=== PATIENT | female | born 1995 | race Caucasian/White ===

== ENCOUNTER → 2021-10-03 13:39 | Outpatient (BNVA) | payer BC, SELFPAY | PROVIDERS: Visit Provider Advanced Practice Midwife ==

== ENCOUNTER → 2021-10-19 16:31 | Outpatient (BNVA) | payer BC, SELFPAY | PROVIDERS: Visit Provider Advanced Practice Midwife ==

== ENCOUNTER 2022-01-01 08:35 | Outpatient (REF) | payer BC, SELFPAY ==
[2022-01-01 15:51] LABS: CT PCR NOT DETECTED (Not Detect.); NG PCR NOT DETECTED (Not Detect.)
[2022-01-02 15:47] LABS: BV Int Neg Control Negative (Negative); BV Int Pos Control Positive (Positive)
== END 2022-01-01 08:36 | disposition home or self-care (01) ==
LOC: HO.LAB 08:35
PROVIDERS: Visit Provider Advanced Practice Midwife
DX: Z01.411 Encounter for gynecological examination (general) (routine) with abnormal findings (principal); E28.2 Polycystic ovarian syndrome; R63.8 Other symptoms and signs concerning food and fluid intake; R10.2 Pelvic and perineal pain; R35.0 Frequency of micturition; Z20.2 Contact with and (suspected) exposure to infections with a predominantly sexual mode of transmission
CPT/HCPCS: 81025; 87086; 87480; 87491; 87510; 87591; 87660

== ENCOUNTER 2022-01-23 15:18 | Outpatient (REF) | payer BC, SELFPAY ==
--- NOTE | ~2022-01-23 | US_ITS ---
EXAMINATION: US PELVIS CLINICAL INFORMATION: Pelvic pain COMPARISON: None TECHNIQUE: Ultrasound of the pelvis is performed using both transabdominal and transvaginal transducers along with Doppler. Transvaginal imaging is performed due to inadequate visualization transabdominally. FINDINGS: The uterus is anteverted and measures 7 x 2.8 x 4 cm in dimension. No focal uterine lesion is seen. Endometrial thickness is normal measuring 0.6 cm. The right ovary is upper normal in size measuring 4 x 3.5 x 2.3 cm. The left ovary is normal in size measuring 3.8 x 2.1 x 2.2 cm. There are numerous small peripheral cysts or follicles seen in both ovaries with polycystic appearance. There is no fluid seen in the pelvis. US/US pelvic and transvaginal IMPRESSION: Normal-appearing uterus. Polycystic appearance of the ovaries.
== END 2022-01-23 15:19 | disposition home or self-care (01) ==
LOC: HO.US 15:18
PROVIDERS: PCP Nurse Practitioner Family; Visit Provider Advanced Practice Midwife
DX: R10.2 Pelvic and perineal pain (principal); E28.2 Polycystic ovarian syndrome; R35.0 Frequency of micturition; R63.8 Other symptoms and signs concerning food and fluid intake
CPT/HCPCS: 76830; 76856

== ENCOUNTER → 2022-02-06 15:02 | Outpatient (BNVA) | payer BC, SELFPAY | PROVIDERS: Visit Provider Advanced Practice Midwife ==

== ENCOUNTER 2024-07-30 10:14 | Outpatient (AMB) | payer BC, SELFPAY ==
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
== END 2024-07-30 12:58 | disposition home or self-care (01) ==
LOC: HO.HOP 10:15
PROVIDERS: Visit Provider Counselor Mental Health
DX: F42.9 Obsessive-compulsive disorder, unspecified (principal); F43.22 Adjustment disorder with anxiety
CPT/HCPCS: 90791

== ENCOUNTER → 2024-07-30 10:14 | Outpatient (BNVA) | payer BC, SELFPAY | PROVIDERS: Visit Provider Counselor Mental Health ==

== ENCOUNTER → 2024-09-15 12:14 | Outpatient (AMB) | payer BC, SELFPAY ==
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
== END ==
LOC: HO.HOP 12:14
PROVIDERS: Visit Provider Counselor Mental Health
DX: F42.9 Obsessive-compulsive disorder, unspecified (principal); F43.22 Adjustment disorder with anxiety
CPT/HCPCS: 90837

== ENCOUNTER → 2024-09-15 12:14 | Outpatient (BNVA) | payer BC, SELFPAY | PROVIDERS: Visit Provider Counselor Mental Health ==

== ENCOUNTER 2024-10-13 12:21 | Outpatient (AMB) | payer BC, SELFPAY ==
--- NOTE | 2024-10-13 12:05 | A.OFFWM_ITS ---
Intake Intake Visit Reasons: VIDEO OP Therapy Allergies Penicillins Allergy (Unknown, Verified 01/01/22 08:56) Unknown [facility] Medical History ADHD Obesity (BMI 30.0-34.9) PCOS (polycystic ovarian syndrome) Surgical History Hx of tonsillectomy Family History Maternal Grandmother History of breast cancer Ovarian cancer Social History Alcohol intake: current Alcohol intake frequency: a few times a month Patient Tobacco Use Status: Never used Tobacco Current occupational status: employed Current occupation: accountant budget Sexual orientation: Straight/Heterosexual Gender identity: Female Female Reproductive History Menstrual Age of Menarche: 11 Behavioral Health Assessment Weight Management Therapy Therapy Notes Details Subjective: Sad, frustrated and worried, she was let go from her job without any previous head up or notice, last week. Objective: PT presents for a f/up visit via Telehealth . Discussed functioning and processed new sources of stress. Validated and normalized feelings. Supported client with mindfulness exercise and problem solving activity. Supported client breaking down anxiety-provoking situations into manageable steps. Supportive therapy implemented, with CBT techniques. Constructive feedback provided. Assessment/Response: * Mental status: Worries, anxious, preoccupied. Alert, oriented x3. Functioning not impaired. * Risk reported/identified: None PT was open, active and engaged and responded well to interventions. Declined f/up in week for extra support as feeling she's doing well given the circumstances. She will return in 3 weeks. Assessment & Plan Assessment & Plan (1) Obsessive-compulsive disorder, unspecified: Code(s): F42.9 - Obsessive-compulsive disorder, unspecified (2) Adjustment disorder with anxiety: Code(s): F43.22 - Adjustment disorder with anxiety Plan follow up in 3 weeks. Next lili: 11/03/2024 @12, via Telehealth. Telehealth Telehealth Telehealth Platform: [facility] Location of provider rendering services: other Location of patient: address on file Patient Identification confirmed using: Name, : Yes Telehealth method: video Patient verbally consented to treatment: Yes Patient verbally consented to billing insurance company: Yes Patient informed of any privacy concerns related to visit: Yes Minutes spent on Phone/Video with Pt.: 55 Coding Level of Care Code Established Pt Tele Psytx >53 mins ([id number]) Patient Type Established Diagnoses Obsessive-compulsive disorder, unspecified F42.9 Adjustment disorder with anxiety F43.22 Time Spent (min) 55
== END 2024-10-13 14:31 | disposition home or self-care (01) ==
LOC: HO.HOP 12:21
PROVIDERS: Visit Provider Counselor Mental Health
DX: F42.9 Obsessive-compulsive disorder, unspecified (principal); F43.22 Adjustment disorder with anxiety
CPT/HCPCS: 90837

== ENCOUNTER → 2024-10-13 12:21 | Outpatient (BNVA) | payer BC, SELFPAY | PROVIDERS: Visit Provider Counselor Mental Health ==

== ENCOUNTER 2024-11-03 13:02 | Outpatient (AMB) | payer BC, SELFPAY ==
--- NOTE | 2024-11-03 12:05 | MHC.WMTHER ---
Intake Intake Visit Reasons: VIDEO OP Therapy Allergies Penicillins Allergy (Unknown, Verified 01/01/22 08:56) Unknown [facility] Medical History ADHD Obesity (BMI 30.0-34.9) PCOS (polycystic ovarian syndrome) Surgical History Hx of tonsillectomy Family History Maternal Grandmother History of breast cancer Ovarian cancer Social History Alcohol intake: current Alcohol intake frequency: a few times a month Patient Tobacco Use Status: Never used Tobacco Current occupational status: employed Current occupation: budget accountant Sexual orientation: Straight/Heterosexual Gender identity: Female Female Reproductive History Menstrual Age of Menarche: 11 Behavioral Health Assessment Weight Management Therapy Therapy Notes Details Subjective: PT reports feeling better, she is working with an corporate attorney for job-re situation and already accepted a job offer, to start a new job in december. Objective: PT presents for a F/up visit via Telehealth. . Discussed functioning, progress and worries. Reviewed stress reduction techniques for Sx management. Supportive therapy with reflective listening implemented. Discussed ways to identify stressors and corresponding OCD behaviors and Sx management. Worked in ways to practice more gratitude and self-care allowing her to use this as preventative measure for when the triggers come and increase chances for better responses. CBT-based techniques implemented. Assessment/Response: Mental status: WNL Risk reported/identified:None PT stable, responded well to interventions. Assessment & Plan Assessment & Plan (1) Obsessive-compulsive disorder, unspecified: Code(s): F42.9 - Obsessive-compulsive disorder, unspecified (2) Adjustment disorder with anxiety: Code(s): F43.22 - Adjustment disorder with anxiety Plan PT requested a F/up after the holidays (after 12/08/24 - 5-6 wks from today) Next lili: 12/15/2024 @12, via Telehealth. Telehealth Telehealth Telehealth Platform: [employer] Location of provider rendering services: other Location of patient: address on file Patient Identification confirmed using: Name, : Yes Telehealth method: video Patient verbally consented to treatment: Yes Patient verbally consented to billing insurance company: Yes Patient informed of any privacy concerns related to visit: Yes Minutes spent on Phone/Video with Pt.: 55 Coding Level of Care Code Established Pt Tele Psytx >53 mins ([id number]) Patient Type Established Diagnoses Obsessive-compulsive disorder, unspecified F42.9 Adjustment disorder with anxiety F43.22 Time Spent (min) 55
== END 2024-11-03 14:30 | disposition home or self-care (01) ==
LOC: HO.HOP 13:02
PROVIDERS: Visit Provider Counselor Mental Health
DX: F42.9 Obsessive-compulsive disorder, unspecified (principal); F43.22 Adjustment disorder with anxiety
CPT/HCPCS: 90837

== ENCOUNTER → 2024-11-03 13:02 | Outpatient (BNVA) | payer BC, SELFPAY | PROVIDERS: Visit Provider Counselor Mental Health ==

== ENCOUNTER 2024-12-15 12:29 | Outpatient (AMB) | payer BC, SELFPAY ==
--- NOTE | 2024-12-15 12:05 | A.OFFWM_ITS ---
Intake Intake Visit Reasons: VIDEO OP Therapy Allergies Penicillins Allergy (Unknown, Verified 01/01/22 08:56) Unknown [facility] Medical History ADHD Obesity (BMI 30.0-34.9) PCOS (polycystic ovarian syndrome) Surgical History Hx of tonsillectomy Family History Maternal Grandmother History of breast cancer Ovarian cancer Social History Alcohol intake: current Alcohol intake frequency: a few times a month Patient Tobacco Use Status: Never used Tobacco Current occupational status: employed Current occupation: traveling repair accountant Sexual orientation: Straight/Heterosexual Gender identity: Female Female Reproductive History Menstrual Age of Menarche: 11 Behavioral Health Assessment Weight Management Therapy Therapy Notes Details Subjective: The patient reports starting a new job last week. She is adjusting well to the new position, though she experiences some anxiety and tends to overthink. Overall, she feels excited about the opportunity but is working on managing her anxiety around the transition. Objective: The patient presents for a follow-up visit via telehealth. During the session, we explored her feelings of anxiety and overthinking regarding the new job. Using Cognitive Behavioral Therapy (CBT), we identified and challenged any negative or unrealistic thoughts related to her performance and fear of making mistakes. We worked on reframing those thoughts to foster a more balanced perspective. Mindfulness techniques, such as grounding exercises and deep breathing, were introduced to help her manage anxiety during moments of overwhelm. The patient was encouraged to practice these exercises throughout the day, particularly before work or when anticipating stressful situations. Additionally, we discussed anxiety management techniques, such as identifying early signs of anxiety and using relaxation strategies to address symptoms before they escalate. Assessment/Response: * Mental status: The patient is alert, oriented, and engaged in the session. She demonstrates a positive attitude toward her new job but expresses occasional anxiety and overthinking, which she is actively addressing. * Risk: No risks identified. No current safety concerns related to self-harm, suicidal ideation (SI), or harm to others. The patient was engaged throughout the session and responded well to the interventions, reporting a sense of relief after practicing some of the anxiety management techniques. Assessment & Plan Assessment & Plan (1) Obsessive-compulsive disorder, unspecified: Code(s): F42.9 - Obsessive-compulsive disorder, unspecified (2) Adjustment disorder with anxiety: Code(s): F43.22 - Adjustment disorder with anxiety Plan * Continue to meet on a monthly basis to support anxiety management and adjustment to the new job. * Focus on reinforcing mindfulness and anxiety management techniques to help her cope with stress and overthinking. * Monitor progress and adjust interventions as needed to address any ongoing concerns. Next lili: 01/12/2025 @12pm, Telehealth. Telehealth Telehealth Telehealth Platform: [facility] Location of provider rendering services: other Location of patient: address on file Patient Identification confirmed using: Name, : Yes Telehealth method: video Patient verbally consented to treatment: Yes Patient verbally consented to billing insurance company: Yes Patient informed of any privacy concerns related to visit: Yes Minutes spent on Phone/Video with Pt.: 55 Coding Level of Care Code Established Pt Tele Psytx >53 mins (37541) Patient Type Established Diagnoses Obsessive-compulsive disorder, unspecified F42.9 Adjustment disorder with anxiety F43.22 Time Spent (min) 55
== END 2024-12-15 14:51 | disposition home or self-care (01) ==
LOC: HO.HOP 12:29
PROVIDERS: Visit Provider Counselor Mental Health
DX: F42.9 Obsessive-compulsive disorder, unspecified (principal); F43.22 Adjustment disorder with anxiety
CPT/HCPCS: 90837